=== PATIENT | male | born 1990 | race Caucasian/White ===

== ENCOUNTER 2024-07-02 01:39 | Emergency (ER) | payer MEDICAID ==
[~2024-07-02] VITALS: Ht 182.9 cm; Wt 90.0 kg
[2024-07-02 01:41] VITALS: BP 121/67; PULSE 76; RESP 16; TEMP 36.9; O2SAT 100
== END 2024-07-02 02:30 | disposition home or self-care (01) ==
LOC: ER 01:39
DX: F19.10 Other psychoactive substance abuse, uncomplicated (principal)
CPT/HCPCS: 99283